=== PATIENT | female | born 1980 | race Caucasian/White ===

== ENCOUNTER 2022-01-10 20:08 | Outpatient (CLI) | payer OTHER | END 2022-01-10 20:09 | disposition critical access hospital (66) | LOC: EMS 20:08 | DX: S91.012A Laceration without foreign body, left ankle, initial encounter (principal); W25.XXXA Contact with sharp glass, initial encounter; Y92.008 Other place in unspecified non-institutional (private) residence as the place of occurrence of the external cause | CPT/HCPCS: A0425; A0427 ==

== ENCOUNTER 2022-01-10 20:24 | Emergency (ER) | payer OTHER ==
[2022-01-10] MEDS ORDERED: HYDROmorphone 1 MG/ML CARPUJECT IVP STA ×2 (20:30→22:55)
[2022-01-10] MEDS ORDERED: ONDANSETRON 4 MG/2 ML VIAL IVP STA (20:36)
[2022-01-10] MEDS ORDERED: SODIUM CHLORIDE 0.9% 1,000 ML IV STA ×2 (20:43→23:22)
[2022-01-10] MEDS ORDERED: lidocaine 1% 20 ML MDV ONE (20:44)
[2022-01-10] MEDS ORDERED: ceFAZolin 1 GM in SODIUM CHLORIDE 0.9% MINIBAG 100 ML IV STA (20:45)
--- NOTE | 2022-01-10 20:50 | ED Physician Documentation ---
PD HPI LOWER EXT INJURY - Stated complaint Stated Complaint: LEG LAC - Chief complaint Chief Complaint: Laceration - History obtained from History obtained from: Patient - Additional information Additional information: 41-year-old woman up-to-date on tetanus (2017). A glass vase fell at her house and she has a large laceration on the posterior of the left ankle with heavy bleeding prior to arrival. Pain is significant as well and has received 150 mcg of fentanyl on the way here from EMS. Tourniquets are in place on the left thigh to stanch the bleeding. Review of Systems Ten Systems: 10 systems reviewed and negative Constitutional: reports: Reviewed and negative Cardiac: reports: Reviewed and negative Respiratory: reports: Reviewed and negative PD PAST MEDICAL HISTORY - Past Medical History Past Medical History: Yes Endocrine/Autoimmune: HyPOthyroidism Psych: Depression, Anxiety - Past Surgical History Past Surgical History: Yes General: Gastric surgery - Allergies Allergies/Adverse Reactions: Allergies Allergy/AdvReac Type Severity Reaction Status Date / Time azithromycin Allergy Unknown Verified 01/10/22 20:52 ciprofloxacin [From Cipro] Allergy Unknown Verified 01/10/22 20:29 Sulfa (Sulfonamide Allergy Unknown Verified 01/10/22 20:29 Antibiotics) - Social History Does the pt smoke?: No Smoking Status: Never smoker Does the pt drink ETOH?: No Does the pt have substance abuse?: No - Immunizations Immunizations are current?: Yes PD ED PE NORMAL - Vitals Vital signs reviewed: Yes - General General: Alert and oriented X 3, No acute distress - HEENT HEENT: PERRL, EOMI - Neck Neck: Supple, no meningeal sign, No bony TTP - Cardiac Cardiac: RRR, No murmur - Respiratory Respiratory: No respiratory distress, Clear bilaterally - Abdomen Abdomen: Normal bowel sounds, Soft, Non tender - Back Back: No CVA TTP, No spinal TTP - Derm Derm: Normal color, Warm and dry - Extremities Extremities: Other (There is an approximately 10 cm laceration just below the medial malleolus of the left ankle. I am unable to check tendon function during initial examination but she seems to have grossly normal sensation distal to this. On release of the tourniquet there is active arterial spurting.) - Neuro Neuro: Alert and oriented X 3, Normal speech - Psych Psych: Normal mood, Normal affect Results - Vitals Vitals: Vital Signs - 24 hr 0801/10/22 01/10/22 20:29 21:00 21:30 Temperature 37.3 C Heart Rate 94 68 75 Respiratory 12 16 12 Rate Blood Pressure 157/120 H 138/92 H 143/86 H O2 Saturation 100 100 100 01/10/22 01/10/22 01/10/22 22:00 22:30 23:00 Temperature Heart Rate 89 86 88 Respiratory 12 13 13 Rate Blood Pressure 147/99 H 157/101 H 154/97 H O2 Saturation 100 100 100 01/10/22 01/11/22 23:30 00:00 Temperature Heart Rate 101 H 106 H Respiratory 15 6 L Rate Blood Pressure 167/113 H 162/103 H O2 Saturation 98 95 Oxygen O2 Source Nasal cannula - Labs Labs: Laboratory Tests 01/10/22 01/10/22 01/10/22 20:45 20:54 20:54 WBC 6.5 RBC 4.21 Hgb 12.3 Hct 36.7 L MCV 87.2 MCH 29.2 MCHC 33.5 RDW 13.2 Plt Count 151 MPV 11.6 H Neut # (Auto) 3.1 Lymph # (Auto) 2.8 [place] # (Auto) 0.5 Eos # (Auto) 0.1 Baso # (Auto) 0.0 Absolute Nucleated RBC 0.00 Nucleated RBC % 0.0 PT 11.8 INR 1.1 Sodium Potassium Chloride Carbon Dioxide Anion Gap BUN Creatinine Estimated GFR (MDRD) Glucose Calcium Serum HCG, Qual Nasal Adenovirus (PCR) NOT DETECTED Nasal B. parapertussis DNA (PCR) NOT DETECTED Nasal Coronavir 229E PCR NOT DETECTED Nasal Coronavir HKU1 PCR NOT DETECTED Nasal Coronavir NL63 PCR NOT DETECTED Nasal Coronavir OC43 PCR NOT DETECTED Nasal Enterovir/Rhinovir PCR NOT DETECTED Nasal Influenza B PCR NOT DETECTED Nasal Influenza A PCR NOT DETECTED Nasal Parainfluen 1 PCR NOT DETECTED Nasal Parainfluen 2 PCR NOT DETECTED Nasal Parainfluen 3 PCR NOT DETECTED Nasal Parainfluen 4 PCR NOT DETECTED Nasal RSV (PCR) NOT DETECTED Nasal B.pertussis DNA PCR NOT DETECTED Nasal C.pneumoniae (PCR) NOT DETECTED Tito Human Metapneumo PCR NOT DETECTED Nasal M.pneumoniae (PCR) NOT DETECTED Nasal SARS-CoV-2 (PCR) NOT DETECTED 01/10/22 01/10/22 20:54 20:54 WBC RBC Hgb Hct MCV MCH MCHC RDW Plt Count MPV Neut # (Auto) Lymph # (Auto) [place] # (Auto) Eos # (Auto) Baso # (Auto) Absolute Nucleated RBC Nucleated RBC % PT INR Sodium 137 Potassium 3.4 L Chloride 108 Carbon Dioxide 20 L Anion Gap 9.0 BUN 16 Creatinine 0.7 Estimated GFR (MDRD) 93 Glucose 124 H Calcium 8.3 L Serum HCG, Qual NEGATIVE Nasal Adenovirus (PCR) Nasal B. parapertussis DNA (PCR) Nasal Coronavir 229E PCR Nasal Coronavir HKU1 PCR Nasal Coronavir NL63 PCR Nasal Coronavir OC43 PCR Nasal Enterovir/Rhinovir PCR Nasal Influenza B PCR Nasal Influenza A PCR Nasal Parainfluen 1 PCR Nasal Parainfluen 2 PCR Nasal Parainfluen 3 PCR Nasal Parainfluen 4 PCR Nasal RSV (PCR) Nasal B.pertussis DNA PCR Nasal C.pneumoniae (PCR) Tito Human Metapneumo PCR Nasal M.pneumoniae (PCR) Nasal SARS-CoV-2 (PCR) Procedures - Laceration (location) L ankle Length in cm: 10 Wound type: Curved, Into subcut fat, Into muscle Neurovascular status: Sensory intact Anesthesia: Lidocaine 1% Wound preparation: Irrigated copiously NS Skin layer closure: Annia Other: Patient tolerated well, No complications, Neurovascular intact, Tetanus UTD PD MEDICAL DECISION MAKING - ED course ED course: 41-year-old woman presents with a significant ankle laceration, given the location and arterial spurting it is fairly likely that she has a posterior tibial artery laceration. It is a fairly deep laceration and tendon injury is also likely. She was attended to immediately upon arrival, after a brief neurovascular exam the wound was closed with annia, continued to ooze but the bleeding was much cashier tube room. I ordered 1 Gram of Ancef IV. Tetanus is up-to-date. I discussed the case with our on-call surgeon, Dr Rodriguez who recommends transfer to a trauma center. We do not have Ortho on-call. After some delay she was accepted by Dr. ELIS Gonzalez to [facility] at 2240. Pain was difficult to control here and she was given multiple divided doses of Dilaudid with temporary relief. Although the sensation on the bottom of her foot was normal after initial evaluation. She did develop a neuropraxia there with numbness. - Critical Care Time(min): 35 Time Includes: Direct patient care, Reassess patient, Document care, Medical consult, Family consult for tx dec Data interpretation: Labs Procedures included in critical care time: Peripheral IV Departure - Departure Disposition: 02 Transfer Acute Care Hosp Clinical Impression: Laceration of ankle, Open injury of dorsalis pedis artery Condition: Serious
[2022-01-10] MEDS ORDERED: ONDANSETRON 4 MG/2 ML VIAL ONE (20:51)
[2022-01-10 21:04] LABS: BASOPHILS % (AUTO) 0.5 %; EOSINOPHILS # (AUTO) 0.1 10^3/uL (0.0-0.7); EOSINOPHILS % (AUTO) 1.2 %; HCT - HEMATOCRIT 36.7 % (37.0-47.0); HGB - HEMOGLOBIN 12.3 g/dL (12.0-16.0); LYMPHOCYTES # (AUTO) 2.8 10^3/uL (1.5-3.5); LYMPHOCYTES % (AUTO) 42.7 %; MEAN CORPUSCULAR HEMOGLOBIN 29.2 pg (27.0-31.0); MEAN CORPUSCULAR HGB CONC 33.5 g/dL (32.0-36.0); MEAN CORPUSCULAR VOLUME 87.2 fL (81.0-99.0); MEAN PLATELET VOLUME 11.6 fL (7.9-10.8); MONOCYTES # (AUTO) 0.5 10^3/uL (0.0-1.0); MONOCYTES % (AUTO) 7.7 %; NEUTROPHILS # (AUTO) 3.1 10^3/uL (1.5-6.6); NEUTROPHILS % (AUTO) 47.7 %; PLT - PLATELET COUNT 151 10^3/uL (130-450); RED BLOOD COUNT 4.21 10^6/uL (4.20-5.40); RED CELL DISTRIBUTION WIDTH 13.2 % (12.0-15.0); WHITE BLOOD COUNT 6.5 x10^3/uL (4.8-10.8)
[2022-01-10] MEDS ORDERED: ceFAZolin 1 GM VIAL ONE (21:07)
[2022-01-10 21:14] LABS: CALCIUM 8.3 mg/dL (8.5-10.3); CREATININE 0.7 mg/dL (0.4-1.0); POTASSIUM 3.4 mmol/L (3.5-5.0)
[2022-01-10 21:15] LABS: INR 1.1 (0.8-1.2); PT - PROTHROMBIN TIME 11.8 secs (9.9-12.6)
[2022-01-10 21:39] LABS: HCG,QUALITATIVE BLOOD NEGATIVE
[2022-01-10 21:52] LABS: B. PARAPERTUSSIS- RESP PCR PAN NOT DETECTED; B. PERTUSSIS- RESP PCR PANEL NOT DETECTED; C. PNEUMONIAE- RESP PCR PANEL NOT DETECTED; CORONAVIRUS 229E-RESP PCR NOT DETECTED; CORONAVIRUS HKU1-RESP PCR NOT DETECTED; CORONAVIRUS NL63-RESP PCR NOT DETECTED; CORONAVIRUS OC43-RESP PCR NOT DETECTED; HUMAN METAPNEUMOVIRUS NOT DETECTED; INFLUENZA A- RESP PCR PANEL NOT DETECTED; INFLUENZA B - RESP PCR PANEL NOT DETECTED; M. PNEUMONIAE- RESP PCR PANEL NOT DETECTED; PARAINFLUENZA VIRUS 1 NOT DETECTED; PARAINFLUENZA VIRUS 2 NOT DETECTED; PARAINFLUENZA VIRUS 3 NOT DETECTED; PARAINFLUENZA VIRUS 4 NOT DETECTED; RHINOVIRUS/ENTEROVIRUS NOT DETECTED; RSV- RESP PCR PANEL NOT DETECTED; SARS-CoV-2 -RESP PCR PANEL NOT DETECTED
[2022-01-10] MEDS ORDERED: HYDROmorphone 1 MG/ML CARPUJECT ONE (22:31)
[2022-01-11 00:10] VITALS: BP 162/103
== END 2022-01-11 00:55 | disposition short-term general hospital (02) ==
LOC: EDBD → ED 20:24
DX: S91.012A Laceration without foreign body, left ankle, initial encounter (principal); S95.80 Unspecified injury of other blood vessels at ankle and foot level; W01.110A Fall on same level from slipping, tripping and stumbling with subsequent striking against sharp glass, initial encounter; Y93.89 Activity, other specified; Y92.009 Unspecified place in unspecified non-institutional (private) residence as the place of occurrence of the external cause; Z20.822 Contact with and (suspected) exposure to COVID-19
CPT/HCPCS: 12034; 36415; 80048; 84703; 85025; 85610; 87633; 96365; 96375; 96376; 99285; 99291; J1170